=== PATIENT | female | born 2000 | race African-American/Black ===

== ENCOUNTER 2021-07-17 11:22 | Emergency (ER) | payer OTHER ==
[2021-07-17 12:19] LABS: #Monocytes 0.8 10x3/uL (0.0-1.1); #Neutrophils 6.5 10x3/uL (1.5-8.4); %Basophils 0.2 % (0.0-2.0); %Eosinophils 0.1 % (0.0-6.0); %Lymphocytes 18.3 % (18.0-47.0); %Monocytes 9.2 % (0.0-10.0); %Neutrophils 71.6 % (40.0-75.0); Hemoglobin 9.6 g/dL (12.0-15.5); Mean Corpuscular HGB CONC 32.3 g/dL (32.0-36.0); Mean Corpuscular Hemoglobin 28.1 pg (27.0-33.0); Mean Corpuscular Volume 86.8 fl (81.6-98.3); Platelet Count 304 10x3/uL (150-450); RBC Distribution Width 14.8 % (11.5-14.5); Red Blood Cell (RBC) Count 3.42 10x6/uL (3.90-5.03); White Blood Cell (WBC) Count 9.1 10x3/uL (3.5-10.5)
[2021-07-17 12:29] LABS: ALT (SGPT) 15 U/L (8-55); AST (SGOT) 24 U/L (5-34); Albumin 3.6 g/dL (3.5-5.0); Alkaline Phosphatase 79 U/L (40-110); Anion Gap 14 mmol/L (10-20); BUN (Urea Nitrogen) 6 mg/dL (7.0-18.7); Bilirubin, Total 0.3 mg/dL (0.2-1.2); Calc. Creatinine Clearance 0 mL/min (70-130); Calcium 9.1 mg/dL (7.8-10.44); Carbon Dioxide 21 mmol/L (22-29); Chloride 105 mmol/L (98-107); Globulin 3.7 g/dL (2.4-3.5); Glucose 104 mg/dL (70-105); Potassium 3.8 mmol/L (3.5-5.1); Protein, Total 7.3 g/dL (6.0-8.3); Sodium 136 mmol/L (136-145)
[2021-07-17 13:57] LABS: Bilirubin Neg (Negative); Blood, Urine 50 (Negative); Clarity Cloudy (Clear); Glucose, Urine (Dipstick) Normal (Negative); Ketone, Urine 50 mg/dL (Negative); Leukocyte 500 (Negative); Nitrite Positive (Negative); Protein, Urine (Dipstick) 30 mg/dl (Neg-Trace)
[2021-07-17 14:08] LABS: RBC/HPF 0-3 HPF (0-3); WBC/HPF Greater Than 50 HPF (0-3)
[2021-07-17 14:09] LABS: Bacteria/HPF 4+ HPF (None Seen)
[2021-07-17] MEDS ORDERED: cefTRIAXone\\ROCEPHIN 1 GM VIAL ONE (14:50)
== END 2021-07-17 17:05 | disposition home or self-care (01) ==
LOC: CSHERS 11:22
DX: O23.43 Unspecified infection of urinary tract in pregnancy, third trimester (principal); N39.0 Urinary tract infection, site not specified; O99.013 Anemia complicating pregnancy, third trimester; D64.9 Anemia, unspecified; Z20.822 Contact with and (suspected) exposure to COVID-19; Z3A.35 35 weeks gestation of pregnancy
CPT/HCPCS: 51701; 71045; 80053; 81003; 81015; 83605; 85025; 87804; 96365; J0696; U0003; U0005

== ENCOUNTER 2021-12-18 21:06 | Emergency (ER) | payer OTHER, SELFPAY ==
[2021-12-18 23:55] LABS: #Eosinphils 0.2 10x3/uL (0.0-0.5); #Monocytes 0.5 10x3/uL (0.0-1.1); #Neutrophils 4.7 10x3/uL (1.5-8.4); %Basophils 0.3 % (0.0-2.0); %Eosinophils 2.6 % (0.0-6.0); %Lymphocytes 17.4 % (18.0-47.0); %Monocytes 7.7 % (0.0-10.0); %Neutrophils 71.8 % (40.0-75.0); Hemoglobin 10.1 g/dL (12.0-15.5); Mean Corpuscular HGB CONC 32.1 g/dL (32.0-36.0); Mean Corpuscular Hemoglobin 27.4 pg (27.0-33.0); Mean Corpuscular Volume 85.6 fl (81.6-98.3); Mean Platelet Volume 9.7 fl (7.4-10.4); Platelet Count 308 10x3/uL (150-450); RBC Distribution Width 15.9 % (11.5-14.5); Red Blood Cell (RBC) Count 3.68 10x6/uL (3.90-5.03); White Blood Cell (WBC) Count 6.5 10x3/uL (3.5-10.5)
[2021-12-19 00:08] LABS: Pregnancy Test - Urine (BHCG) Negative (Negative)
[2021-12-19 00:08] LABS: ALT (SGPT) 10 U/L (8-55); AST (SGOT) 17 U/L (5-34); Albumin 4.2 g/dL (3.5-5.0); Alkaline Phosphatase 56 U/L (40-110); Anion Gap 12 mmol/L (10-20); BUN (Urea Nitrogen) 13 mg/dL (7.0-18.7); Bilirubin, Total 0.4 mg/dL (0.2-1.2); Calc. Creatinine Clearance 0 mL/min (70-130); Calcium 9.3 mg/dL (7.8-10.44); Carbon Dioxide 24 mmol/L (22-29); Chloride 107 mmol/L (98-107); Estimated GFR 126; Globulin 2.9 g/dL (2.4-3.5); Glucose 107 mg/dL (70-105); Potassium 3.5 mmol/L (3.5-5.1); Protein, Total 7.1 g/dL (6.0-8.3); Sodium 139 mmol/L (136-145)
[2021-12-19 00:09] LABS: Bilirubin Neg (Negative); Blood, Urine 250 (Negative); Clarity Sl. Cloudy (Clear); Glucose, Urine (Dipstick) Normal (Negative); Ketone, Urine 50 mg/dL (Negative); Leukocyte 25 (Negative); Nitrite Positive (Negative); Pregu Control Background? CLEAR/WHITE (CLR/WHITE); Pregu Control Bar Appear? YES (CONTROL BAR); Protein, Urine (Dipstick) 30 mg/dl (Neg-Trace); Urobilinogen Normal mg/dL (Less than 2)
[2021-12-19 00:12] LABS: Bacteria/HPF 4+ HPF (None Seen); RBC/HPF 0-3 HPF (0-3); Squamous Epithelial 0-3 HPF (0-3)
[2021-12-19] MEDS ORDERED: Cephalexin 250 MG CAP ONE (02:01)
== END 2021-12-19 02:28 | disposition home or self-care (01) ==
LOC: CSHERS 21:06
DX: N39.0 Urinary tract infection, site not specified (principal)
CPT/HCPCS: 80053; 81003; 81015; 81025; 85025; 99284

== ENCOUNTER 2022-01-26 19:57 | Emergency (ER) | payer OTHER ==
[2022-01-26 20:36] LABS: Bilirubin Neg (Negative); Blood, Urine 150 (Negative); Clarity Clear (Clear); Glucose, Urine (Dipstick) Normal (Negative); Ketone, Urine Negative (Negative); Leukocyte 25 (Negative); Nitrite Positive (Negative); Protein, Urine (Dipstick) 15 mg/dl (Neg-Trace); Specific Gravity, Urine 1.015 (1.005-1.030); Urobilinogen Normal mg/dL (Less than 2); pH, Urine 6.5 (5.0-9.0)
[2022-01-26 20:38] LABS: Pregnancy Test - Urine (BHCG) Negative (Negative); Pregu Control Background? CLEAR/WHITE (CLR/WHITE); Pregu Control Bar Appear? YES (CONTROL BAR); Specific Gravity 1.015 (1.002-1.036)
[2022-01-26 20:51] LABS: Bacteria/HPF 3+ HPF (None Seen); WBC/HPF 0-3 HPF (0-3)
== END 2022-01-26 22:55 | disposition home or self-care (01) ==
LOC: CSHERS 19:57
DX: N39.0 Urinary tract infection, site not specified (principal)
CPT/HCPCS: 81003; 81015; 81025; 99284

== ENCOUNTER 2024-01-15 20:17 | Emergency (ER) | payer MEDICAID, OTHER ==
[2024-01-15] MEDS ORDERED: Ondansetron PF 4 MG/2 ML Vial ONE (21:06)
[2024-01-15 21:46] LABS: Anion Gap 21 mmol/L (10-20); BUN (Urea Nitrogen) 9 mg/dL (7.0-18.7); Calc. Creatinine Clearance 0 mL/min (70-130); Calcium 10.5 mg/dL (7.8-10.44); Carbon Dioxide 16 mmol/L (22-29); Chloride 100 mmol/L (98-107); Estimated GFR 106; Glucose 96 mg/dL (70-105); Sodium 134 mmol/L (136-145)
[2024-01-15 23:06] LABS: Bilirubin 1+ (Negative); Blood, Urine 250 (Negative); Clarity Cloudy (Clear); Glucose, Urine (Dipstick) Normal (Negative); Ketone, Urine 150 mg/dL (Negative); Leukocyte 25 (Negative); Nitrite Positive (Negative); Protein, Urine (Dipstick) 100 mg/dl (Neg-Trace)
[2024-01-15 23:18] LABS: RBC/HPF Greater than 50 HPF (0-3)
[2024-01-15 23:19] LABS: CAUTI Indications for Culture Fever or rigors
[2024-01-15 23:20] LABS: Bacteria/HPF 2+ HPF (None Seen)
[2024-01-15 23:21] LABS: Mucous/LPF 1+ LPF (<2+)
[2024-01-15 23:22] LABS: Urine Culture Reflex No No
== END 2024-01-15 23:33 | disposition home or self-care (01) ==
LOC: CSHERS 20:17
DX: O23.41 Unspecified infection of urinary tract in pregnancy, first trimester (principal); N39.0 Urinary tract infection, site not specified; O21.9 Vomiting of pregnancy, unspecified; Z3A.10 10 weeks gestation of pregnancy
CPT/HCPCS: 76801; 80048; 81001; 96361; 96374; J2405

== ENCOUNTER 2024-04-11 13:24 | Outpatient (CLI) | payer MEDICAID | END 2024-04-11 13:25 | disposition home or self-care (01) | LOC: CSHULT 13:24 | PROVIDERS: ATTEND Family Medicine | DX: O09.892 Supervision of other high risk pregnancies, second trimester (principal); Z3A.23 23 weeks gestation of pregnancy | CPT/HCPCS: 76805 ==